=== PATIENT | female | born 2000 | race Caucasian/White ===

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

== ENCOUNTER → 2019-08-01 | Outpatient (CLI) | payer BC ==
--- NOTE | 2019-08-01 12:26 | Diagnostic Imaging Report ---
Left wrist at 1125 hours. INDICATION: Injury, wrist pain. 3 views were obtained. There are no prior studies available for comparison. FINDINGS: There is no fracture, dislocation or acute bony abnormality evident. The radiocarpal joint is well maintained. The soft tissues are unremarkable. IMPRESSION: There is no evidence for an acute bony abnormality. Dictated by: Dictated on workstation # [id number]
== END ==
LOC: RAD 11:08
PROVIDERS: ATTEND Nurse Practitioner Family
DX: S69.92XA Unspecified injury of left wrist, hand and finger(s), initial encounter (principal)
CPT/HCPCS: 73110

== ENCOUNTER 2020-09-08 19:52 | Emergency (ER) | payer BC ==
[~2020-09-08] VITALS: Ht 160 cm; Wt 95.3 kg
[2020-09-08 20:29] VITALS: BP 136/86
--- NOTE | 2020-09-08 20:41 | ED Upper Extremity ---
General Chief Complaint: Laceration Stated Complaint: L THUMB LACERATION Nursing Triage Note: PT AMBULATE TO TRIAGE WITH C/O LAC TO LEFT THUMB. PT REPORTS SHE WAS OPENING A CAN AND THE LID CUT HER THUMB. Nursing Sepsis Screen: No Definite Risk Source: patient Exam Limitations: no limitations History of Present Illness Date Seen by Provider: Sep 08, 2020 Time Seen by Provider: 20:40 Initial Comments To ER with a laceration to the pad of the left thumb after the lid of a can cut her when she was trying to open it. Last known tetanus vaccine date is unknown. Onset: just prior to arrival Severity: moderate Pain/Injury Location: left thumb Modifying Factors: Worse With Movement Allergies and Home Medications Allergies Coded Allergies: No Known Allergies (Unverified Allergy, Mild, 02/24/09) No Known Drug Allergies (Verified Allergy, Unknown, 11/14/07) Home Medications Amox Tr/Potassium Clavulanate 100 Ml Btl, 2 TSP PO TID Prescribed by: PRANAV VALDES on 02/25/09 0050 Patient Home Medication List Home Medication List Reviewed: Yes Review of Systems Constitutional: see HPI EENTM: see HPI Respiratory: no symptoms reported Cardiovascular: no symptoms reported Genitourinary: no symptoms reported Musculoskeletal: see HPI Skin: no symptoms reported Psychiatric/Neurological: No Symptoms Reported Past Mmnykno-Nrareb-Obujym Hx Patient Social History Alcohol Use: Occasionally Uses Alcohol Beverage of Choice: Wine Recreational Drug Use: No Smoking Status: Never a Smoker 2nd Hand Smoke Exposure: No Recent Foreign Travel: No Contact w/Someone Who Travel: No Recent Infectious Disease Expo: No Recent Hopitalizations: Yes (x1 for pneumonia) Physical Abuse: No Sexual Abuse: No Mistreated: No Fear: No Past Medical History Surgeries: No Respiratory: Yes Cardiac: No Neurological: No Reproductive Disorders: No Gastrointestinal: No Musculoskeletal: No Endocrine: No Psychosocial: No Blood Disorders: No Physical Exam Vital Signs Vital Signs - First Documented 09/08/20 20:29 Temp 37.1 Pulse 85 Resp 18 B/P (MAP) 136/86 (103) O2 Delivery Room Air Capillary Refill : Less Than 3 Seconds Height, Weight, BMI Height: '" Weight: lbs. oz. kg; 37.00 BMI Method: General Appearance: WD/WN, no apparent distress Respiratory: no respiratory distress, no accessory muscle use Shoulder: normal inspection, non-tender Elbow/Forearm: normal inspection, non-tender Wrist: Yes normal inspection, Yes non-tender Hand: normal inspection, non-tender, Right, laceration (1.5cm laceration depth to subq tissues to the left thumb) Neurologic/Psychiatric: alert, normal mood/affect, oriented x 3 Skin: normal color, warm/dry Procedures/Interventions Wound Length (cm): 1.5 Wound's Depth, Shape: linear, sub Q Wound Explored: clean Anesthesia: 1% Lidocaine Volume Anesthetic (ccs): 2 Suture: Prolene Suture Size: 5-0 Number of Sutures: 5 Layer Closure?: 0 Number Deep Layer Sutures: 0 Progress/Results/Core Measures Results/Orders My Orders Orders - RAMSES DELAROSA APRN Dipht,Pertuss(Acell),Tet Adult (Boostrix (09/08/20 20:45) Medications Given in ED Current Medications Medications Dose Ordered Sig/Andrei Route Start Time Stop Time Status Last Admin Dose Admin Diphtheria/ Tetanus/Acell Pertussis 0.5 ml ONCE ONCE IM 09/08/20 20:45 09/08/20 20:46 DC 09/08/20 20:49 0.5 ML Vital Signs/I&O 09/08/20 20:29 Temp 37.1 Pulse 85 Resp 18 B/P (MAP) 136/86 (103) O2 Delivery Room Air Blood Pressure Mean: 103 Departure Impression Primary Impression: Thumb laceration Disposition: 01 HOME, SELF-CARE Condition: Stable Departure-Patient Inst. Decision time for Depature: 20:40 Referrals: BEN LERNER MD (PCP/Family) Primary Care Physician Patient Instructions: Laceration Repair With Stitches ED Add. Discharge Instructions: 1. Keep the stitches clean dry and covered, you can wash gently with soap and water starting tomorrow and then quickly pat it dry. Keep it covered while you are at work. Return to ER in 7 to 10 days to have the stitches removed. Return to ER before then for any sign of infection such as redness or swelling. All discharge instructions reviewed with patient and/or family. Voiced understanding. RAMSES DELAROSA APRN Sep 08, 2020 20:41
[2020-09-08] MEDS ORDERED: TETANUS,DIPTH,PERTUSS P/F (BOOSTRIX) 0.5 ML VIAL IM ONE (20:45)
== END 2020-09-08 20:57 | disposition home or self-care (01) ==
LOC: EDUNIT# 19:52 → ER 19:54
DX: S61.012A Laceration without foreign body of left thumb without damage to nail, initial encounter (principal); Z23 Encounter for immunization; W26.8XXA Contact with other sharp object(s), not elsewhere classified, initial encounter
CPT/HCPCS: 12041; 90715

== ENCOUNTER 2022-01-24 13:39 | Outpatient (CLI) | payer BC | END 2022-01-24 14:00 | LOC: SLEEP 13:39 | PROVIDERS: ATTEND Otolaryngology Otolaryngology/Facial Plastic Surgery | DX: R06.81 Apnea, not elsewhere classified (principal); R06.83 Snoring | CPT/HCPCS: G0399 ==

== ENCOUNTER 2022-07-04 05:42 | Outpatient (CLI) | payer BC ==
[~2022-07-04] VITALS: Ht 160 cm; Wt 86.2 kg
[2022-07-04] MEDS ORDERED: TOPI100T PO (12:14)
[2022-07-04] MEDS ORDERED: BUPR-42 PO (12:14)
[2022-07-04] MEDS ORDERED: AMIT50TA3 PO (12:14)
== END 2022-07-04 12:17 | disposition home or self-care (01) ==
LOC: PREOP 05:42
PROVIDERS: ATTEND Surgery
DX: Z01.818 Encounter for other preprocedural examination (principal)

== ENCOUNTER 2022-08-08 07:30 | Day surgery (SDC) | payer BC ==
[~2022-08-08] VITALS: Ht 160 cm; Wt 86.2 kg
[~2022-08-08 07:30] MED LIST changes: +AMIT50TA3 PO; +BUPR-42 PO; +TOPI100T PO
[2022-08-08] MEDS ORDERED: LACTATED RINGERS 1,000 ML IV STA (07:34)
[2022-08-08 07:44] VITALS: BP 123/99
[2022-08-08] MEDS ORDERED: MIDAZOLAM 2 MG/2 ML (VERSED) VIAL ONE (08:21)
[2022-08-08] MEDS ORDERED: PROPOFOL INJECTION 0 ML IV ONE (08:22)
[2022-08-08 09:02] VITALS: BP 106/67
--- NOTE | 2022-08-08 09:02 | Progress Note-Post Operative ---
Post-Operative Progess Note Surgeon (s)/Bankruptcy Attorney (s) Surgeon ALANA GEE DO Bankruptcy Attorney: SWETA Cummins Pre-Operative Diagnosis Rectal bleed Post-Operative Diagnosis Internal Hemorrhoids Anal fissure Procedure & Operative Findings Date of Procedure 08/08/22 Procedure Performed/Findings Colonoscopy PROCEDURE NOTE: After informed consent was obtained, the patient was brought to the endoscopy suite, placed in bed in left lateral decubitus position. She was administered IV sedation by the CONCRETE CURER who then monitored her vitals the entire time, heart rate, blood pressure and pulse ox and the scope was inserted, pushed all the way to about 150 cm and pushed into the cecum, took a picture of appendiceal orifice and then slowly withdrew the scope insufflating the circumferential gutiérrez looking the cecum, up the ascending colon to the hepatic flexure, then down the transverse colon, splenic flexure, into the descending colon down in the sigmoid and then into the rectal vault and retroflexed the scope. Took picture of the internal hemorrhoids. I did not see anything else, but appears to have minimal anal fissure. The patient tolerated the procedure. She was recovered in endoscopy suite. Recommended for repeat colonoscopy at 43 years of age. Anesthesia Type IV sedation by CONCRETE CURER Estimated Blood Loss Estimated blood loss (mL): scant Specimens/Packing Specimens Removed none ALANA GEE DO Aug 08, 2022 09:02
--- NOTE | 2022-08-08 09:03 | Endoscopy Discharge Instruct ---
Endo Procedure/Findings Findings 1.: Internal Hemorrhoids 2.: Other Findings (anal fissure) Discharge Instructions - Activity: You might feel a little sleepy until tomorrow. This is due to the medicine you received to relax you. Until tomorrow, you should: NOT drive a car, operate machinery or power tools. NOT drink any alcoholic beverages. NOT make any important decisions or sign importortant papers. Do not return to work until tomorrow, unless otherwise instructed. Resume previous activities tomorrow. Diet: Start by taking liquids. If you tolerate liquids, advance to solid food. 1.: Other Recommendation (43 yo colonoscopy) Notify Physician - If you experience excessive bleeding, unusual abdominal pain, fever, or chest pain, contact your doctor immediately. ALANA GEE DO Aug 08, 2022 09:03
[2022-08-08 09:07] VITALS: BP 101/73
[2022-08-08 09:12] VITALS: BP 115/73
[2022-08-08 09:15] VITALS: BP 115/73
[2022-08-08] MEDS ORDERED: PROPOFOL INJECTION 50 ML IV ONE (09:23)
[2022-08-08 09:48] VITALS: BP 115/73
--- NOTE | 2022-08-08 10:53 | Anesthesia-General Post-Op ---
MAC Patient Condition Mental Status/LOC: Same as Preop Cardiovascular: Satisfactory Nausea/Vomiting: Absent Respiratory: Satisfactory Pain: Controlled Complications: Absent Post Op Complications Complications None Follow Up Care/Instructions Patient Instructions None needed. Anesthesiology Discharge Order Discharge Order Patient is doing well, no complaints, stable vital signs, no apparent adverse anesthesia problems. No complications reported per nursing. MONE FERNANDEZ CRNA Aug 08, 2022 10:53
== END 2022-08-08 10:00 | disposition home or self-care (01) ==
LOC: ENDO 07:30
PROVIDERS: ATTEND Surgery
DX: K64.8 Other hemorrhoids (principal); K60.2 Anal fissure, unspecified; E66.9 Obesity, unspecified; Z68.33 Body mass index [BMI] 33.0-33.9, adult
CPT/HCPCS: 84703